=== PATIENT | female | born 1955 | race Caucasian/White ===

== ENCOUNTER 2018-07-25 20:47 | Emergency (ER) | payer OTHER ==
[~2018-07-25] VITALS: Ht 157.4 cm; Wt 63.5 kg
== END 2018-07-25 21:20 | disposition home or self-care (01) ==
LOC: ED 20:47
DX: S30.861A Insect bite (nonvenomous) of abdominal wall, initial encounter (principal); W57.XXXA Bitten or stung by nonvenomous insect and other nonvenomous arthropods, initial encounter; Y93.89 Activity, other specified; Y92.89 Other specified places as the place of occurrence of the external cause; Y99.8 Other external cause status

== ENCOUNTER 2022-04-09 22:29 | Emergency (ER) | payer MEDICARE, OTHER ==
[~2022-04-09] VITALS: Ht 157.4 cm; Wt 54.4 kg
== END 2022-04-10 01:23 | disposition home or self-care (01) ==
LOC: ED 22:29
DX: F41.9 Anxiety disorder, unspecified (principal); G47.00 Insomnia, unspecified

== ENCOUNTER → 2023-07-25 | Outpatient (CLI) | payer MEDICARE ==
[~2023-07-25] MED LIST: BENZTROPINE ME0.5 MG PO; CLONAZEPAM0.5 M2 PO; CLONAZEPAM1 MG PO; DULOXETINE HCL60 MG PO; LATU40TA PO; LORAZEPAM0.5 M1 PO; Synthroid,Levo25 MCG PO; VITAMIN D3125 MC1 PO; ZIPRASIDONE HCL80 M1 PO
== END | disposition home or self-care (01) ==
LOC: RAD 00:35
PROVIDERS: ATTEND Internal Medicine
DX: M85.871 Other specified disorders of bone density and structure, right ankle and foot (principal); N95.0 Postmenopausal bleeding; E03.9 Hypothyroidism, unspecified; E55.9 Vitamin D deficiency, unspecified; M79.7 Fibromyalgia

== ENCOUNTER → 2024-07-14 | Outpatient (CLI) | payer MEDICARE | END | disposition home or self-care (01) | LOC: MAMMO 02:45 | PROVIDERS: ATTEND Internal Medicine | DX: Z12.31 Encounter for screening mammogram for malignant neoplasm of breast (principal); R92.323 Mammographic fibroglandular density, bilateral breasts ==